=== PATIENT | female | born 1935 | race Caucasian/White ===

== ENCOUNTER 2019-10-02 10:47 | Inpatient (IN) | payer BC ==
[~2019-10-02] VITALS: Ht 170.2 cm; Wt 104.3 kg
--- NOTE | 2019-10-02 02:15 | NUR ---
ADMISSION NOTED PT BROUGHT IN FROM ER VIA GURNEY BY ER NURSE AND EMT. NO CARDIAC OR RESPIRATORY DISTRESS NOTED. NO SOB NOTED. SATURATING AT 98% AT ROOM AIR. VS CHECKED NOTED AT T-98.2, P- 60, RR-18, BP-130/60. PT IS CONTINENT OF B/B. HOOKED UP ON CARDIAC TELE MONITOR SHOWING NORMAL SINUS RYTHYM. BODY CHECK DONE NOTED WITH R BUTTOCK WOUND, L BUTTOCK WOUND, AND L 2ND TOE WOUND. PICTURES TAKEN AND PLACED IN CHART. IV ACCESS NOTED ON R AC G18. INTACT AND PATENT AND FLUSHING WELL. NO S/S OF INFECTION OR INFILTRATION NOTED. PT NOTED WITH BLE WEAKNESS. GOOD RANGE OF MOTION NOTED ON BUE. NO ONE SIDED WEAKNESS OR SLURRING OF SPEECH NOTED. SWALLOW EVAL DONE BY PRIMARY RN. PT WAS ABLE TO TOLERATE THIN LIQUIDS. NO SWALLOWING ISSUES NOTED UPON ASSESSMENT. ORIENTED PT TO ROOM AND UNIT. SAFETY PRECAUTIONS IN PLACE. BED LOCKED AND IN LOW POSITION. SIDE RAILS UP X2. BED ALARM ON. CALL LIGHT WITHIN REACH. WILL CONT TO MONITOR. Addendum: 10/02/19 at 1946 by IRMA RUBIO RN PLS DISREGARD NOTE ABOVE. TIME ENTERED WAS INCORRECT.
[2019-10-02 11:19] LABS: BASOPHILS # (AUTO) 0.1 /CMM (0.0-0.2); BASOPHILS % (AUTO) 1.4 % (0.0-2.0); EOSINOPHILS % (AUTO) 2.7 % (0.0-6.0); HEMATOCRIT 41 % (33-45); HEMOGLOBIN 13.2 g/dL (11.5-14.8); LYMPHOCYTES # (AUTO) 1.6 /CMM (0.8-4.8); LYMPHOCYTES % (AUTO) 26.7 % (20.0-44.0); MEAN CORPUSCULAR HGB CONC 32 g/dl (31.0-36.0); MEAN CORPUSCULAR VOLUME 83 fL (82-100); MONOCYTES # (AUTO) 0.3 /CMM (0.1-1.30); NEUTROPHILS # (AUTO) 3.7 /CMM (1.8-8.9); NEUTROPHILS % (AUTO) 63.2 % (43.0-81.0); PLATELET COUNT (AUTO) 295 /CMM (150-450); WHITE BLOOD COUNT (AUTO) 5.8 K/uL (4.3-11.0)
[2019-10-02 11:25] LABS: CALCIUM, SERUM 9.2 mg/dL (8.5-10.1); CARBON DIOXIDE 30 mmol/L (21-32); CHLORIDE 102 mmol/L (98-107); CREATININE 1.4 mg/dL (0.6-1.3); GLUCOSE 142 mg/dL (74-106); POTASSIUM 3.1 mmol/L (3.5-5.1); SODIUM SERUM 141 mmol/L (136-145); UREA NITROGEN, BLOOD 40 mg/dL (7-18)
[2019-10-02 11:31] LABS: ALANINE AMINOTRANSFERASE 12 U/L (12-78); ALBUMIN 3.1 g/dL (3.4-5.0); ALKALINE PHOSPHATASE 81 U/L (46-116); ASPARTATE AMINOTRANSFERASE 6 U/L (15-37); BILIRUBIN,DIRECT 0.1 mg/dL (0.0-0.2); BILIRUBIN,TOTAL 0.2 mg/dL (0.2-1.0); TOTAL PROTEIN, SERUM 7.6 g/dL (6.4-8.2)
--- NOTE | 2019-10-02 12:00 | NUR ---
Appears comfortable in Bed NO obvious distress. Await admission
[2019-10-02 12:19] LABS: CHOLESTEROL 320 mg/dL (<200); HDL CHOLESTEROL 57 mg/dL (40-60); LDL 241 mg/dL (0-99); TRIGLYCERIDES 134 mg/dL (30-150)
--- NOTE | 2019-10-02 12:58 | NUR ---
ROCIO MACKEY SPEAKING WITH MD COTTRELL
[2019-10-02] MEDS ORDERED: MULT-24 PO (13:17)
[2019-10-02] MEDS ORDERED: CLOP75TA15 PO (13:17)
[2019-10-02] MEDS ORDERED: FLUC200T8 PO (13:17)
[2019-10-02] MEDS ORDERED: GABA-532 PO (13:17)
[2019-10-02] MEDS ORDERED: DOCU-141 PO (13:17)
[2019-10-02] MEDS ORDERED: BUME1TAB8 PO (13:17)
[2019-10-02] MEDS ORDERED: LEVO50TA8 PO (13:17)
[2019-10-02] MEDS ORDERED: APIX2.5T PO (13:17)
[2019-10-02] MEDS ORDERED: POLY17PO4 PO (13:17)
[2019-10-02] MEDS ORDERED: POTA-10 PO (13:17)
[2019-10-02] MEDS ORDERED: NADO20TA12 PO (13:17)
[2019-10-02 14:10] VITALS: BP 130/60
--- NOTE | 2019-10-02 14:13 | NUR ---
Nurse Knowledge exchange w/RN Mannie. Transported to floor per elver
--- NOTE | 2019-10-02 14:15 | NUR ---
ADMISSION NOTES PT BROUGHT IN FROM ER VIA GURNEY BY ER NURSE AND EMT. NO CARDIAC OR RESPIRATORY DISTRESS NOTED. NO SOB NOTED. SATURATING AT 98% AT ROOM AIR. VS CHECKED NOTED AT T-98.2, P- 60, RR-18, BP-130/60. PT IS CONTINENT OF B/B. HOOKED UP ON CARDIAC TELE MONITOR SHOWING NORMAL SINUS RYTHYM. BODY CHECK DONE NOTED WITH R BUTTOCK WOUND, L BUTTOCK WOUND, AND L 2ND TOE WOUND. PICTURES TAKEN AND PLACED IN CHART. IV ACCESS NOTED ON R AC G18. INTACT AND PATENT AND FLUSHING WELL. NO S/S OF INFECTION OR INFILTRATION NOTED. PT NOTED WITH BLE WEAKNESS. GOOD RANGE OF MOTION NOTED ON BUE. NO ONE SIDED WEAKNESS OR SLURRING OF SPEECH NOTED. SWALLOW EVAL DONE BY PRIMARY RN. PT WAS ABLE TO TOLERATE THIN LIQUIDS. NO SWALLOWING ISSUES NOTED UPON ASSESSMENT. ORIENTED PT TO ROOM AND UNIT. SAFETY PRECAUTIONS IN PLACE. BED LOCKED AND IN LOW POSITION. SIDE RAILS UP X2. BED ALARM ON. CALL LIGHT WITHIN REACH. WILL CONT TO MONITOR.
--- NOTE | 2019-10-02 15:00 | NUR ---
MD NOTIFICATION ROCIO MACKEY AWARE OF PTS ADMISSION SHE IS CURRENTLY IN THE UNIT. ALL ADMITTING ORDERS PLACED BY .
[2019-10-02 16:00] VITALS: BP 133/70
[2019-10-02] MEDS ORDERED: POTASSIUM CHLORIDE 20 MEQ TAB.PRT.SR PO ONE (16:00)
[2019-10-02] MEDS ORDERED: GABAPENTIN 100 MG CAPSULE PO PRN (16:00)
[2019-10-02] MEDS: BUMETANIDE (1 MG) 1 MG TABLET PO SCH (16:48)
[2019-10-02] MEDS: DOCUSATE SODIUM 100 MG CAPSULE PO SCH (16:49)
[2019-10-02] MEDS: BLOOD SUGAR DIAGNOSTIC 1 EACH STRIP IN SCH ×2 (16:49→21:57)
[2019-10-02 17:04] LABS: CALCIUM, SERUM 9.6 mg/dL (8.5-10.1); CARBON DIOXIDE 24 mmol/L (21-32); CHLORIDE 102 mmol/L (98-107); CREATININE 1.5 mg/dL (0.6-1.3); GLUCOSE 94 mg/dL (74-106); POTASSIUM 3.4 mmol/L (3.5-5.1); SODIUM SERUM 139 mmol/L (136-145); UREA NITROGEN, BLOOD 41 mg/dL (7-18)
[2019-10-02 17:35] LABS: ALANINE AMINOTRANSFERASE 14 U/L (12-78); ALBUMIN 3.4 g/dL (3.4-5.0); ALKALINE PHOSPHATASE 89 U/L (46-116); ASPARTATE AMINOTRANSFERASE 9 U/L (15-37); B-TYPE NATRIURETIC PEPTIDE 97 PG/ML (0-125); BILIRUBIN,TOTAL 0.2 mg/dL (0.2-1.0); TOTAL PROTEIN, SERUM 8.7 g/dL (6.4-8.2)
[2019-10-02] MEDS ORDERED: BLOOD SUGAR DIAGNOSTIC 1 EACH STRIP IN SCH (18:00)
[2019-10-02] MEDS ORDERED: ONDANSETRON HCL/PF 4 MG/2 ML VIAL IVP PRN (18:00)
[2019-10-02] MEDS ORDERED: ZOLPIDEM TARTRATE 5 MG TABLET PO PRN (18:00)
[2019-10-02] MEDS ORDERED: Z GUARD REMEDY 2 OZ OINT TP PRN (18:00)
--- NOTE | 2019-10-02 19:00 | NUR ---
INFORMATION SYSTEMS PLANNER OPENING NOTES: RECEIVED PATIENT IN BED, AWAKE A/O X3. NO SOB NOTED. NO COMPLAIN OF PAIN. BED ALARM ON. CALL LIGHT WITHIN REACH. BED IN LOWEST AND LOCKED POSITION.
--- NOTE | 2019-10-02 19:15 | NUR ---
AWNING ASSEMBLER CLOSING NOTES PT IN BED AWAKE ALERT AND ORIENTED X3. NO CARDIAC OR RESPIRATORY DISTRESS NOTED. NO SOB NOTED. SATURATING AT 98% AT ROOM AIR. ON CARDIAC TELE MONITOR SHOWING NORMAL SINUS RYTHYM. IV ACCESS NOTED ON R AC G18. INTACT AND PATENT AND FLUSHING WELL. NO S/S OF INFECTION OR INFILTRATION NOTED. SAFETY PRECAUTIONS IN PLACE. BED LOCKED AND IN LOW POSITION. SIDE RAILS UP X2. BED ALARM ON. CALL LIGHT WITHIN REACH. WILL ENDORSE TO NEXT SHIFT
[2019-10-02 20:00] VITALS: BP 119/71
[2019-10-02] MEDS: ATORVASTATIN 10 MG TABLET PO SCH (21:49)
[2019-10-02] MEDS: METOPROLOL TARTRATE 25 MG TABLET PO SCH (21:50)
--- NOTE | 2019-10-02 21:58 | NUR ---
BLOOD SUGAR FINGERSTICK= [id number]. NO INSULIN GIVEN.
[2019-10-02 23:33] VITALS: BP 116/58
[2019-10-03] VITALS (7 sets, daily range): BP systolic 116–129; BP diastolic 58–68
--- NOTE | 2019-10-03 02:15 | NUR ---
SCD's ON BOTH LEGS APPLIED PER PROTOCOL.
--- NOTE | 2019-10-03 05:29 | NUR ---
STONEWORKER CLOSING NOTES: PATIENT IN BED, AWAKE, A/O X4. NO SOB NOTED. NO COMPLAIN OF PAIN. AM CARE DONE. Z-GUARD APPLIED ON THE SACR[place]YX AREA AND COVERED WITH MEPILEX DRESSING. HOB ELEVATED AT 30 DEGREES AT ALL TIMES. CALL LIGHT WITHIN REACH. BED ALARM ON. BED IN LOWEST AND LOCKED POSITION. RESTED THROUGHOUT THE NIGHT. PATIENT VOIDED ON THE DIAPER, URINE SAMPLE FOR DRUG TESTING NOT COLLECTED, WILL ENDORSE TO DAYSHIFT RN.
[2019-10-03] MEDS: BLOOD SUGAR DIAGNOSTIC 1 EACH STRIP IN SCH ×4 (06:24→22:20)
--- NOTE | 2019-10-03 06:24 | NUR ---
BLOOD SUGAR FINGERSTICK= [id number], NO COVERAGE.
[2019-10-03 06:56] LABS: CALCIUM, SERUM 9.1 mg/dL (8.5-10.1); CREATININE 1.3 mg/dL (0.6-1.3); MAGNESIUM 2.1 mg/dL (1.8-2.4); PHOSPHORUS 3.3 mg/dL (2.5-4.9); POTASSIUM 3.6 mmol/L (3.5-5.1)
[2019-10-03 07:03] LABS: BASOPHILS % (AUTO) 0.8 % (0.0-2.0); EOSINOPHILS % (AUTO) 3.3 % (0.0-6.0); HEMATOCRIT 41 % (33-45); HEMOGLOBIN 13.3 g/dL (11.5-14.8); LYMPHOCYTES # (AUTO) 1.8 /CMM (0.8-4.8); LYMPHOCYTES % (AUTO) 30.9 % (20.0-44.0); MEAN CORPUSCULAR HGB CONC 33 g/dl (31.0-36.0); MEAN CORPUSCULAR VOLUME 84 fL (82-100); MONOCYTES # (AUTO) 0.4 /CMM (0.1-1.30); MONOCYTES % (AUTO) 7.6 % (2.0-12.0); NEUTROPHILS # (AUTO) 3.3 /CMM (1.8-8.9); NEUTROPHILS % (AUTO) 57.4 % (43.0-81.0); PLATELET COUNT (AUTO) 262 /CMM (150-450); RED BLOOD CELL COUNT(AUTO) 4.88 MIL/uL (4.0-5.2); WHITE BLOOD COUNT (AUTO) 5.7 K/uL (4.3-11.0)
--- NOTE | 2019-10-03 07:31 | NUR ---
FAMILY SERVICES ASSISTANT NOTES: RECEIVED PATIENT IN BED RESTING COMFORTABLY IN MODERATE HIGH BACK REST, A/O X4. ON RA, NO SIGNS OF DISTRESS NOTED AT THIS TIME. IV ACCESS ON RAC#18, SL, PATENT AND INTACT. SAFETY MEASURES IN PLACE, CALL LIGHT WITHIN REACH. BED ALARM ON. BED IN LOWEST AND LOCKED POSITION WITH SIDE RAILS UP X2. WILL CONTINUE TO MONITOR.
[2019-10-03] MEDS: BUMETANIDE (1 MG) 1 MG TABLET PO SCH ×2 (08:29→17:23)
[2019-10-03] MEDS: LEVOTHYROXINE SODIUM 50 MCG TABLET PO SCH (08:29)
[2019-10-03] MEDS: DOCUSATE SODIUM 100 MG CAPSULE PO SCH ×2 (08:29→17:23)
[2019-10-03] MEDS: MULTIVITAMINS,THERAGRAN 1 UDTAB TABLET PO SCH (08:29)
[2019-10-03] MEDS: METOPROLOL TARTRATE 25 MG TABLET PO SCH ×2 (08:30→21:30)
--- NOTE | 2019-10-03 18:34 | NUR ---
KITCHEN CHEF NOTES: PATIENT IN BED RESTING COMFORTABLY IN MODERATE HIGH BACK REST, A/O X4. ON RA, NO SIGNS OF DISTRESS NOTED THROUGHOUT THE SHIFT. IV ACCESS ON RAC#18, SL, PATENT AND INTACT. SAFETY MEASURES IN PLACE, CALL LIGHT WITHIN REACH. BED ALARM ON. BED IN LOWEST AND LOCKED POSITION WITH SIDE RAILS UP X2. WILL ENDORSE TO SETTLEMENT PROCESSOR NURSE FOR KENYON.
--- NOTE | 2019-10-03 19:45 | NUR ---
RN NOTES: RECEIVED PATIENT IN BED RESTING COMFORTABLY IN MODERATE HIGH BACK REST, ALERT ORIENTED X4. ON ROOM AIR, NO SIGNS OF ACUTE DISTRESS NOTED. IV ACCESS ON RAC#18, SL, PATENT AND INTACT. SAFETY MEASURES IN PLACE, CALL LIGHT WITHIN EASY REACH. BED ALARM ON. BED IN LOWEST AND LOCKED POSITION WITH SIDE RAILS UP X2. WILL CONTINUE TO MONITOR ACCORDINGLY.
[2019-10-03 20:47] LABS: APPEARANCE,URINE CLEAR (CLEAR); BILIRUBIN,URINE NEGATIVE (NEGATIVE); BLOOD, URINE LARGE Ery/uL (NEGATIVE); COLOR,URINE YELLOW (YELLOW); KETONES,URINE NEGATIVE (NEGATIVE); LEUKOCYTE ESTERASE ,URINE SMALL (NEGATIVE); NITRITE, URINE NEGATIVE (NEGATIVE); PROTEIN,URINE NEGATIVE (NEGATIVE); UGLUCOSE NEGATIVE (NEGATIVE); UROBILINOGEN,URINE 0.2 EU/dL (0.2)
[2019-10-03 20:50] LABS: CREATININE, URINE 50.1 MG/DL (30.0-125.0)
[2019-10-03 20:56] LABS: RBC,URINE 51-80 /HPF (0-2)
[2019-10-03 20:57] LABS: BACTERIA,URINE 1+ /HPF (None Seen); SQUAMOUS EPITHELIAL CELL,UR Few /HPF (None Seen)
[2019-10-03 20:59] LABS: URINE TOTAL PROTEIN 7.3 mg/dL (0-11.9)
[2019-10-03 21:20] LABS: EOSINOPHIL,URINE None Seen
[2019-10-03] MEDS: ATORVASTATIN 10 MG TABLET PO SCH (21:29)
[2019-10-04] VITALS: BP 119/58
[2019-10-04 04:00] VITALS: BP 115/52
--- NOTE | 2019-10-04 07:06 | NUR ---
RN NOTES ALL NEEDS ATTENDED AND MET, ABLE TO REST AND SLEPT AND INTERVALS, SAFETY MEASURES INPLACE, CALL LIGHT WITHIN EASY REACH, WILL ENDORSE TO AM NURSE FOR CONTINUITY OF CARE.
[2019-10-04 07:15] LABS: BASOPHILS % (AUTO) 0.6 % (0.0-2.0); EOSINOPHILS % (AUTO) 3.6 % (0.0-6.0); HEMATOCRIT 39 % (33-45); HEMOGLOBIN 12.7 g/dL (11.5-14.8); LYMPHOCYTES # (AUTO) 1.9 /CMM (0.8-4.8); MEAN CORPUSCULAR HGB CONC 32 g/dl (31.0-36.0); MEAN CORPUSCULAR VOLUME 83 fL (82-100); MONOCYTES # (AUTO) 0.4 /CMM (0.1-1.30); MONOCYTES % (AUTO) 6.5 % (2.0-12.0); NEUTROPHILS # (AUTO) 3.2 /CMM (1.8-8.9); NEUTROPHILS % (AUTO) 56.3 % (43.0-81.0); PLATELET COUNT (AUTO) 272 /CMM (150-450); RED BLOOD CELL COUNT(AUTO) 4.73 MIL/uL (4.0-5.2); WHITE BLOOD COUNT (AUTO) 5.7 K/uL (4.3-11.0)
--- NOTE | 2019-10-04 07:30 | NUR ---
NURSE PRACTICAL OPENING NOTES RECEIVED PT ON BED, A/OX4, MEXICAN SPEAKING, RESPONSIVE TO ALL STIMULI WITH MECHOOPDA. RESPIRATION EVEN AND NONLABORED WITH NO ACUTE RESPIRATORY DISTRESS IN ROOM AIR. ABD SOFT AND NON DISTENDED WITH ACTIVE BOWEL SOUNDS. DENIES PAIN AND DISCOMFORT. SKIN WARM TO TOUCH AND DRY. IV SITE AT RIGHT AC #18 PATENT IN FLUSHING, SITE NO S/SX OF INFILTRATION. TELE MONITOR SHOWS SINUS RHYTHM 71. BED IN LOW LOCKED POSITION, SR X2 FOR SAFETY. CALL LIGHT WITHIN REACH. WILL CONTINUE TO MONITOR CARE.
[2019-10-04 07:36] LABS: ALBUMIN 2.9 g/dL (3.4-5.0); BILIRUBIN,TOTAL 0.3 mg/dL (0.2-1.0); CALCIUM, SERUM 8.5 mg/dL (8.5-10.1); CREATININE 1.3 mg/dL (0.6-1.3); MAGNESIUM 1.9 mg/dL (1.8-2.4); PHOSPHORUS 2.8 mg/dL (2.5-4.9); POTASSIUM 3.1 mmol/L (3.5-5.1); TOTAL PROTEIN, SERUM 7.3 g/dL (6.4-8.2)
[2019-10-04] MEDS: BLOOD SUGAR DIAGNOSTIC 1 EACH STRIP IN SCH ×4 (07:51→22:01)
[2019-10-04] MEDS: LEVOTHYROXINE SODIUM 50 MCG TABLET PO SCH (07:56)
[2019-10-04 08:00] VITALS: BP 123/76
[2019-10-04] MEDS: DOCUSATE SODIUM 100 MG CAPSULE PO SCH ×2 (08:32→16:54)
[2019-10-04] MEDS: METOPROLOL TARTRATE 25 MG TABLET PO SCH ×2 (08:32→21:29)
[2019-10-04] MEDS: MULTIVITAMINS,THERAGRAN 1 UDTAB TABLET PO SCH (08:32)
[2019-10-04] MEDS: BUMETANIDE (1 MG) 1 MG TABLET PO SCH ×2 (08:34→16:54)
[2019-10-04] MEDS: FLUCONAZOLE (100 MG) 100 MG TABLET PO SCH (10:09)
[2019-10-04] MEDS ORDERED: POTASSIUM CHLORIDE 20 MEQ TAB.PRT.SR PO ONE (12:30)
[2019-10-04] MEDS ORDERED: ACETAMINOPHEN 325 MG TABLET PO PRN (12:30)
[2019-10-04] MEDS: CEFTRIAXONE 1 G in IV D5W 50 ML IV SCH (12:35)
--- NOTE | 2019-10-04 13:30 | NUR ---
SUPERVISOR GROWER NOTES PROVIDED BED BATH WITH DEJAN FLORES. INNER BUTTOCK WITH REDNESS AND OPEN SKIN TAKEN WITH THE PICTURE CHART UPON ADMISSION. CLEANSE WITH NS. PAT DRY. APPLIED ZGUARD AND MEPILEX. 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 WILL CONTINUE TO OFFER.
--- NOTE | 2019-10-04 14:57 | NUR ---
PAPER SALES REPRESENTATIVE NOTES PT ASKED TO TAKE A PICTURE UNDER HER BREAST AND ABD FOLD DUE TO REDNESS, EXCORIATION. PT REFUSED AND CAN RETRY WHEN NEXT BED BATH TO PROVIDE. RISK AND BENEFITS DISCUSSED WITH PT FOR PROPER TREATMENT,PT UNDERSTOOD. WILL ATTEMPT AGAIN LATER
[2019-10-04 16:00] VITALS: BP 121/68
--- NOTE | 2019-10-04 16:16 | NUR ---
M/S RN NOTES WHILE PERFORMING BED BATH, ASSESSED SKIN WITH REDNESS AND EXCORIATION TO BOTH UNDER BREAST FOLDS AND LEFT ABD FOLDS, TENDER TO TOUCH. PT STATED SHE ALWAYS HAVE THIS PROBLEM AND HAS A POWDER AT HOME TO PREVENT SKIN WORSENING, STATED SHE FEEL "LIQUID BUMPS" WHEN SHE CHECK HER SKIN. TOOK A PICTURE OF THE SKIN ISSUES AND ORDERED WOUND CONSULT. PT AWARE AND WILL BE WAITING FOR NEW ORDER. WILL CONTINUE TO MONITOR CARE,
--- NOTE | 2019-10-04 18:54 | NUR ---
M/S RN CLOSING NOTES PT A/OX4, RESPONSIVE TO ALL STIMULI WITH [place], BOTH UPPER ARM EXTREMITY WNL, BLE WITH WEAKNESS. NO FACIAL DROOPING/SLURRED SPEECH/VISION CHANGES WITHIN THE SHIFT. RESPIRATION EVEN AND NONLABORED WITH NO ACUTE RESPIRATORY DISTRESS, TOLERATED ROOM AIR. ABD SOFT AND NON DISTENDED WITH ACTIVE BOWEL SOUNDS. DENIES PAIN AND DISCOMFORT. IV SITE AT RIGHT AC #18 PATENT IN FLUSHING, SITE NO S/SX OF INFILTRATION. BED IN LOW LOCKED POSITION, SR X2 FOR SAFETY. CALL LIGHT WITHIN REACH. ALL CONCERNS ATTENDED. ENDORSED PT CARE TO NEXT SHIFT.
--- NOTE | 2019-10-04 19:10 | NUR ---
REAGENT TENDER HELPER OPENING NOTES RECEIVED PT ON BED, A/OX4, AUSTRALIAN SPEAKING, RESPIRATION EVEN AND NONLABORED WITH NO ACUTE RESPIRATORY DISTRESS IN ROOM AIR. DENIES PAIN AND DISCOMFORT. SKIN WARM TO TOUCH AND DRY. IV SITE AT RIGHT AC #18 PATENT IN FLUSHING, SITE NO S/SX OF INFILTRATION. BED IN LOW LOCKED POSITION, SR X2 FOR SAFETY. CALL LIGHT WITHIN REACH. WILL CONTINUE TO MONITOR CARE.
[2019-10-04 20:00] VITALS: BP 112/55
[2019-10-04] MEDS: ATORVASTATIN 10 MG TABLET PO SCH (21:29)
[2019-10-05 00:12] VITALS: BP 115/60
--- NOTE | 2019-10-05 06:49 | NUR ---
RN CLOSING NOTES PT ON BED NO SIGN AND SYMPTOMS OF RESPIRATORY DISTRESS, NO COMPLAINT OF ANY PAIN THIS MORNING, ALL NEEDS ATTENDED SAFETY MEASURE MAINTAINED WILL ENDORSED TO AM SHIFT NURSE
[2019-10-05 07:12] LABS: BASOPHILS % (AUTO) 0.6 % (0.0-2.0); EOSINOPHILS % (AUTO) 4.7 % (0.0-6.0); HEMATOCRIT 38 % (33-45); HEMOGLOBIN 12.3 g/dL (11.5-14.8); LYMPHOCYTES # (AUTO) 2.6 /CMM (0.8-4.8); LYMPHOCYTES % (AUTO) 43.1 % (20.0-44.0); MEAN CORPUSCULAR HGB CONC 32 g/dl (31.0-36.0); MEAN CORPUSCULAR VOLUME 83 fL (82-100); MONOCYTES # (AUTO) 0.4 /CMM (0.1-1.30); MONOCYTES % (AUTO) 6.8 % (2.0-12.0); NEUTROPHILS # (AUTO) 2.7 /CMM (1.8-8.9); NEUTROPHILS % (AUTO) 44.8 % (43.0-81.0); PLATELET COUNT (AUTO) 235 /CMM (150-450); WHITE BLOOD COUNT (AUTO) 6.1 K/uL (4.3-11.0)
[2019-10-05 07:14] LABS: CALCIUM, SERUM 8.6 mg/dL (8.5-10.1); CREATININE 1.3 mg/dL (0.6-1.3); MAGNESIUM 1.9 mg/dL (1.8-2.4); POTASSIUM 3.6 mmol/L (3.5-5.1)
[2019-10-05 08:00] VITALS: BP 145/65
[2019-10-05 08:07] LABS: PTH, INTACT 78 pg/mL (15-65)
[2019-10-05] MEDS: FLUCONAZOLE (100 MG) 100 MG TABLET PO SCH (08:52)
[2019-10-05] MEDS: BLOOD SUGAR DIAGNOSTIC 1 EACH STRIP IN SCH ×3 (08:52→17:01)
[2019-10-05] MEDS: LEVOTHYROXINE SODIUM 50 MCG TABLET PO SCH (08:52)
[2019-10-05] MEDS: MULTIVITAMINS,THERAGRAN 1 UDTAB TABLET PO SCH (08:52)
[2019-10-05] MEDS: DOCUSATE SODIUM 100 MG CAPSULE PO SCH ×2 (08:52→17:01)
[2019-10-05] MEDS: BUMETANIDE (1 MG) 1 MG TABLET PO SCH ×2 (08:52→17:01)
[2019-10-05 09:03] VITALS: BP 120/52
[2019-10-05] MEDS: METOPROLOL TARTRATE 25 MG TABLET PO SCH (09:03)
--- NOTE | 2019-10-05 11:44 | NUR ---
WOUND CARE CONSULT: PT PRESENTS WITH INCONTINENCE ASSOCIATED SKIN DAMAGE TO BUTTOCKS AND OTHER MOISTURE ASSOCIATED SKIN ISSUES, PRESENT ON ADMISSION. RECOMMENDATIONS MADE FOR SKIN PROTECTION AND DISCUSSED WITH NURSING STAFF. PT IS ON [facility] BED. IN AGREEMENT WITH PLAN OF CARE. WILL SEE PRN. Addendum: 10/05/19 at 1145 by HORACIO HIDALGO WNDNU Amended: Links added.
[2019-10-05] MEDS ORDERED: CEPH-570 PO (12:41)
[2019-10-05] MEDS ORDERED: ATOR10TA PO (12:41)
[2019-10-05] MEDS: CEFTRIAXONE 1 G in IV D5W 50 ML IV SCH (13:26)
[2019-10-05 16:06] LABS: *SPE A/G RATIO 0.8 (0.7-1.7); *SPE ALBUMIN 2.7 g/dL (2.9-4.4); *SPE ALPHA-1-GLOBULIN 0.2 g/dL (0.0-0.4); *SPE BETA GLOBULIN 1.3 g/dL (0.7-1.3); *SPE GLOBULIN, TOTAL 3.5 g/dL (2.2-3.9); *SPE M-SPIKE Not Observed g/dL (Not Observed)
--- NOTE | 2019-10-05 17:25 | NUR ---
M/S RN NOTES PATIENT DISCHARGED IN STABLE CONDITION, NO RESPIRATORY DISTRESS, NO C/O PAIN AT THIS TIME. SKIN WARM TO TOUCH, IV REMOVED AND APPLIED PRESSURE DRESSING. PATIENT REFUSED FOR ANY SKIN ASSESSMENT AND PHOTOS AT THIS TIME STATED "IM LEAVING ALREADY, I HAVE ARTHRITIS." PATIENT GIVEN DISCHARGE INSTRUCTIONS, VERBALIZED UNDERSTANDING. CALLED [facility] AND SPOKE TO ALEXANDER TO GIVE DISCHARGE INSTRUCTIONS REGARDING NEW PRESCRIPTIONS ORDERED BY MD. PATIENT'S BELONGINGS LIST SIGNED AND PUT IN CHART. PATIENT ESCORTED TO LOBBY VIA WHEELCHAIR WITH MARK JOSEPH. PATIENT LEFT IN PRIVATE CAR WITH LAURI FRANCO.
== END 2019-10-05 17:34 | disposition home health service (06) | DRG 64 ==
LOC: ER 10:47 → TELE 13:56 → MED 10-04 08:14
PROVIDERS: ADMIT Nurse Practitioner Acute Care; ATTEND Nurse Practitioner Acute Care
DX: I61.1 Nontraumatic intracerebral hemorrhage in hemisphere, cortical (principal); I50.33 Acute on chronic diastolic (congestive) heart failure; N17.0 Acute kidney failure with tubular necrosis; I13.0 Hypertensive heart and chronic kidney disease with heart failure and stage 1 through stage 4 chronic kidney disease, or unspecified chronic kidney disease; N39.0 Urinary tract infection, site not specified; E44.1 Mild protein-calorie malnutrition; N18.9 Chronic kidney disease, unspecified; E87.6 Hypokalemia; B96.20 Unspecified Escherichia coli [E. coli] as the cause of diseases classified elsewhere; Z79.01 Long term (current) use of anticoagulants; Z86.711 Personal history of pulmonary embolism; Z86.718 Personal history of other venous thrombosis and embolism; B96.4 Proteus (mirabilis) (morganii) as the cause of diseases classified elsewhere; E88.09 Other disorders of plasma-protein metabolism, not elsewhere classified; Z68.36 Body mass index [BMI] 36.0-36.9, adult; R23.3 Spontaneous ecchymoses; R47.81 Slurred speech; R29.810 Facial weakness; R40.2412 Glasgow coma scale score 13-15, at arrival to emergency department; R29.706 NIHSS score 6; R51 Headache; I70.245 Atherosclerosis of native arteries of left leg with ulceration of other part of foot; L97.529 Non-pressure chronic ulcer of other part of left foot with unspecified severity
CPT/HCPCS: 36415; 70450-TC; 71045-TC; 80048-TC; 80053-TC; 80061-TC; 80076-TC; 80305; 81000-TC; 82550-TC; 82570-TC; 82962-TC; 83735-TC; 83880; 83970; 84100-TC; 84155; 84155-TC; 84165; 84300-TC; 84443-TC; 84484-TC; 85025-TC; 85652-TC; 85730-TC; 87086-TC; 87186-TC; 92521; 92526; 92611-TC; 93307-TC; 97110-TC; 97112-TC; 97530-TC; G0378; J0696; J7050; J7060